=== PATIENT | female | born 1955 | race Caucasian/White ===

== ENCOUNTER → 2016-05-26 | Outpatient (CLI) | payer OTHER ==
[~2016-05-26] MED LIST: ASACOL400 MG OR; CLIMARA 0.00.0375 MG; CLIMARA 0.00.0375 MG TRANSDERM; CYCLOBENZAPRINE5 MG PO; FISH OIL 1,0001 EAC5 PO; FISH OIL 1,001000 M2 PO; FISHOIL OR; HYDROCODON-ACE1 EAC7 PO; LIPITOR10 MG PO; MOBIC15 MG PO; OXYCODONE HCL 55 MG PO; PARAFON FORTE500 M2 PO; RA GLUCOSAMINE PO; SULFASALAZINE500 M4 OR; SYNTHROID100 MCG OR; THERA-M CAPLET1 EACH OR; UNICOMPLEX M TA1 TA1 PO
== END ==
LOC: RAD 11:25
DX: Z12.31 Encounter for screening mammogram for malignant neoplasm of breast (principal)

== ENCOUNTER → 2016-10-17 | Outpatient (CLI) | payer OTHER | LOC: LABMALL 11:38 | DX: I10 Essential (primary) hypertension (principal); R74.8 Abnormal levels of other serum enzymes ==

== ENCOUNTER → 2017-04-26 | Outpatient (CLI) | payer OTHER ==
--- NOTE | ~2017-04-26 | 2DMMODE ---
[facility] [employer] [place] [address] 2 D/M-MODE ECHOCARDIOGRAM Name: TAWNY MILIAN Room #: REG [facility]#: [id number] Admission: 04/26/17 Attend Phys: Delroy Iverson MD Discharge: Date of : 59 Date of Service: 04/26/17 0941 Report #: [id number] THIS REPORT FOR: //name// APPROVED REPORT Study performed: 04/26/2017 08:54:05 EXAM: Comprehensive 2D, Doppler, and color-flow Echocardiogram Patient Location: Out-Patient Status: routine BSA: 1.74 HR: 63 bpm Rhythm: NSR Other Information Study Quality: Good Indications Chest Pain Family history CAD. 2D Dimensions RVDd: 32.05 mm LVEF(%): 68.43 (>50%) IVSd: 9.83 (7-11mm) LVOT Diam: 20.73 (18-24mm) LVDd: 42.01 mm PWd: 9.44 (7-11mm) Ascending Ao: 33.10 (22-36mm) LVDs: 26.09 (25-40mm) Aortic Root: 32.17 mm Price's LVEF: 68.43 % Volumes Left Atrial Volume (Systole) Single Plane 4CH: 37.29 mL Single Plane 2CH: 44.90 mL LA ESV Index: 25.00 mL/m2 Aortic Valve AoV Peak Julian.: 1.29 m/s AO Peak Gr.: 6.68 mmHg LVOT Max P.89 mmHg LVOT Max V: 0.99 m/s BRIANNA Vmax: 2.57 cm2 Mitral Valve E/A Ratio: 0.8 [facility] [employer]: [place] [address] [place] [address] 2 D/M-MODE ECHOCARDIOGRAM Name: RUDDY MILIANN Room #: [facility]#: [id number] Admission: 04/26/17 Attend Phys: Delroy Iverson MD Discharge: Date of : 59 Date of Service: 04/26/17 0941 Report #: [id number] MV Decel. Time: 286.66 ms MV E Max Julian.: 0.69 m/s MV A Julian.: 0.87 m/s MV PHT: 83.13 ms IVRT: 83.04 ms Pulmonary Valve PV Peak Julian.: 0.83 m/s PV Peak Gr.: 2.73 mmHg Pulmonary Vein P Vein S: 0.58 m/s P Vein A: 0.26 m/s P Vein D: 0.39 m/s P Vein A Dur.: 129.2 msec P Vein S/D Ratio: 1.49 Tricuspid Valve TR Peak Julian.: 2.22 m/s RAP Estimate: 5.00 mmHg TR Peak Gr.: 19.64 mmHg PA Pressure: 25.00 mmHg Left Ventricle The left ventricle is normal size. There is normal LV segmental wall motion. There is normal left ventricular wall thickness. Left ventricular systolic function is normal. LVEF is 60-65%. Mild diastolic dysfunction is present (impaired relaxation pattern). Right Ventricle The right ventricle is normal size. The right ventricular systolic function is normal. Atria The left atrium size is normal. The right atrium size is normal. Aortic Valve The aortic valve is normal in structure. No aortic regurgitation is present. There is no aortic valvular stenosis. Mitral Valve The mitral valve is normal in structure. Trace to mild mitral regurgitation. Tricuspid Valve The tricuspid valve is normal in structure. Trace to mild tricuspid regurgitation. Estimated PAP is 25mmHg. [facility] [address] [place] [address] 2 D/M-MODE ECHOCARDIOGRAM Name: TAWNY MILIAN Room #: REG [facility]#: [id number] Admission: 04/26/17 Attend Phys: Delroy Iverson MD Discharge: Date of : 59 Date of Service: 04/26/17 0941 Report #: [id number] Pulmonic Valve The pulmonary valve is normal in structure. Trace to mild pulmonic regurgitation. Great Vessels The aortic root is normal in size. The ascending aorta is normal in size. IVC is normal in size and collapses >50% with inspiration. Pericardium There is no pericardial effusion. <Conclusion> The left ventricle is normal size. Left ventricular systolic function is normal. Mild diastolic dysfunction is present (impaired relaxation pattern). The right ventricle is normal size. The left atrium size is normal. The aortic valve is normal in structure. Trace to mild mitral regurgitation. <ELECTRONICALLY SIGNED> By: Delroy Iverson MD 04/26/17940 0 0 Delroy Iverson MD /INF
== END ==
LOC: NUC 07:54
DX: I50.30 Unspecified diastolic (congestive) heart failure (principal); I65.23 Occlusion and stenosis of bilateral carotid arteries; R09.89 Other specified symptoms and signs involving the circulatory and respiratory systems

== ENCOUNTER → 2017-05-25 | Outpatient (CLI) | payer OTHER | LOC: RAD 11:17 | DX: Z12.31 Encounter for screening mammogram for malignant neoplasm of breast (principal) ==

== ENCOUNTER → 2017-10-26 | Outpatient (CLI) | payer OTHER | LOC: RAD 10:29 | DX: M43.12 Spondylolisthesis, cervical region (principal); M54.12 Radiculopathy, cervical region; M48.02 Spinal stenosis, cervical region ==

== ENCOUNTER → 2017-11-01 | Outpatient (CLI) | payer OTHER | LOC: MRI 07:04 | DX: M46.92 Unspecified inflammatory spondylopathy, cervical region (principal); M43.22 Fusion of spine, cervical region; M48.02 Spinal stenosis, cervical region; R20.0 Anesthesia of skin ==

== ENCOUNTER → 2018-05-29 | Outpatient (CLI) | payer OTHER | LOC: RAD 08:02 | DX: Z12.31 Encounter for screening mammogram for malignant neoplasm of breast (principal) ==

== ENCOUNTER → 2018-06-04 | Outpatient (CLI) | payer OTHER | LOC: ULTRA 10:06 | DX: R92.2 Inconclusive mammogram (principal) ==

== ENCOUNTER → 2019-06-12 | Outpatient (CLI) | payer OTHER ==
[~2019-06-12] MED LIST changes: +ALEVE220 M1 PO; +BENEFIBER1 EAC1 PO; +CRESTOR10 MG PO; +METAMUCIL1 EAC1 PO; -SULFASALAZINE500 M4 OR; +SULFASALAZINE500 M4 PO; +SYNTHROID100 MC1 PO; -SYNTHROID100 MCG OR; +ZYRTEC10 M5 PO
== END ==
LOC: MRI 07:27
DX: S83.281A Other tear of lateral meniscus, current injury, right knee, initial encounter (principal); M71.21 Synovial cyst of popliteal space [Baker], right knee; X58.XXXA Exposure to other specified factors, initial encounter; Y93.89 Activity, other specified; Y92.89 Other specified places as the place of occurrence of the external cause; Y99.8 Other external cause status

== ENCOUNTER → 2019-06-13 | Outpatient (CLI) | payer OTHER | LOC: RAD 09:27 | DX: Z12.31 Encounter for screening mammogram for malignant neoplasm of breast (principal) ==

== ENCOUNTER 2019-06-20 05:54 | Day surgery (SDC) | payer OTHER ==
[~2019-06-20] VITALS: Ht 157.5 cm; Wt 77.1 kg
[2019-06-20 07:27] VITALS: BP 126/69
--- NOTE | 2019-06-23 18:07 | PATH ---
[facility] [place] [address] PATHOLOGY RPT PROCEDURE Name: CARLI MANRIQUE Room #: [facility] M.R.#: [id number] Admission: 06/20/19 Date of : 59 Discharge: 06/20/19 Report #: [id number] Path Case #: [id number] LCA Accession Number: [id number] . 01 Material submitted: . foot - WART LEFT FOOT. Modifiers: left . 01 Clinical history: . Multiple warts left foot . 02 Diagnosis: Skin, wart left foot, excision: - Superficial fragments of a verruca vulgaris. - No definite malignancy within the superficial sample. (IUV:david; 06/23/2019) QMS 06/23/2019 1257 Local . 02 Comment: Please note sample may not be entirely artist representative. Correlate clinically and follow-up as indicated. (IUV:david; 06/23/2019) . 02 Electronically signed: . Raisa Payton MD, Pathologist NPI- [id number] . 01 Gross description: . The specimen is received in formalin, labeled "Carli Manrique wart left foot" and consists of a verrucoid pink-mcneill skin shave measuring 1.4 x 1.3 x 0.3 cm. It is inked, serially sectioned, and entirely submitted in A1. (SDY; 06/20/2019) SYU/SYU 06/20/2019 1630 Local . 02 Pathologist provided ICD-10: B07.8 . 02 CPT . 843158 Specimen Comment: A courtesy copy of this report has been sent to [phone] Specimen Comment: [phone] Specimen Comment: Report sent to and Performed at: [address] [id number] MD Rodrick Early MD Phone: [phone] Performed at: [address] [address] PATHOLOGY RPT PROCEDURE Name: RUDDY MANRIQUEN Room #: [facility] M.R.#: [id number] Admission: 06/20/19 Date of : 59 Discharge: 06/20/19 Report #: [id number] Path Case #: [id number] [address] [place], [place] [id number] MD Raisa Payton MD Phone: [phone]
--- NOTE | 2019-07-03 08:58 | H ---
[facility] [place] [place] [address] HISTORY AND PHYSICAL Name: TAWNY MILIAN Room #: DEP [facility] M.Lloyd.#: [id number] Admission: 06/20/19 Attend Phys: ELVIS Peterson Discharge: 06/20/19 Date of : 59 Report #: [id number] THIS REPORT FOR: //name// CC: Agnieszka Rivas DATE OF SURGERY: 06/20/2019 INTRODUCTION: The patient is a 64-year-old female who is presenting to outpatient surgery at [facility] for removal of painful warts on the left foot. The patient has a fairly large area of wart development on the left first metatarsophalangeal joint plantarly and several other warts scattered across her foot that are symptomatic and in need of removal. Because of the large size and distribution, it was felt that performance of these procedures under IV sedation would offer most comfortable and best outcome. The patient has elected to proceed with this procedure. PAST MEDICAL HISTORY: The patient has history of arthritis, hypercholesterolemia, hypothyroidism. ALLERGIES: The patient has sensitivity TO PENICILLIN AND TRAMADOL. MEDICATIONS: The patient currently taking glucosamine, fish oil, alprazolam, acetaminophen, rosuvastatin, naproxen, cetirizine and levothyroxine. Denies other medicines at this time. PAST SURGICAL HISTORY: Includes bunionectomy, knee surgery, rotator cuff repair, shoulder surgery, skin cancer, VIRY and BSO. She has also had a right second toe correction. She denies complications of surgery and anesthesia. SOCIAL HISTORY: The patient is employed, has supportive home life. Denies usage of alcohol, tobacco or illicit drugs. PHYSICAL EXAMINATION: PEDAL: Dorsalis pedis, posterior tibial pulses are graded at 2/4. Capillary refill time is within normal limits. NEUROLOGICAL: The patient is grossly intact to all sensory stimulus including sharp, dull, proprioceptive and vibratory sensations. She has full ankle, subtalar, midtarsal joint ranges of motion without pain or crepitus. There is no orthopedic abnormalities detected. DERMATOLOGIC: Reveals a large 1.5 cm hyperkeratotic lesion on the plantar medial first MPJ, which upon debridement demonstrates classic features consistent with plantar verruca. This lesion is sensitive to palpation and is seemingly associated with several lesions all coalesced, i.e., mosaic wart. There are similar lesions noted on the remaining parts of her foot including a 1.7 cm lesion on the third toe and a smaller 0.4 cm lesion on the hallux. There [address] [address] HISTORY AND PHYSICAL Name: TAWNY MILIAN Room #: DEP [facility].#: [id number] Admission: 06/20/19 Attend Phys: ELVIS Peterson Discharge: 06/20/19 Date of : 59 Report #: [id number] is no other pathology noted. IMPRESSION: Verruca plantaris, multiple mosaic left foot. PLAN: The patient's condition has been reviewed with her and treatment alternatives were discussed. Because these lesions are symptomatic and she has noted some progression in their distribution, she has elected to have them removed. I have discussed the procedure to be performed, which include excision of warts with curettage. The patient understands the nature of the procedure, aftercare demands that will be placed upon her including a period of limited standing and walking, elevation of her foot and use of a postoperative shoe for 2-4 weeks. She will also be responsible for dressing changes. She had no questions regarding these issues. We discussed potential risks and complications, which include but not limited to pain, swelling, bleeding, numbness, infection, delayed healing, undercorrection, overcorrection, anesthesia complications, painful scar formation, recurrent warts, delays in healing, tourniquet complications, etc. After discussing these issues, the patient has no questions and is interested in proceeding with the surgery as discussed. <ELECTRONICALLY SIGNED> By: Farhat Rivas DPM 07/03/19 0858 1205 1220 Farhat Rivas DPM /daphne
--- NOTE | 2019-07-03 08:59 | O ---
[facility] [place] [address] OPERATIVE REPORT Name: TAWNY MILIAN Room #: DEP [facility] Mel.#: [id number] Admission: 06/20/19 Attend Phys: ELVIS Peterson Discharge: 06/20/19 Date of : 59 Report #: [id number] THIS REPORT FOR: cc: Agnieszka Dawson DNP, Mary E. DNP Dorris,Farhat Mallory DPM ~ CC: Agnieszka Rivas DATE OF SERVICE: 06/20/2019 PREOPERATIVE DIAGNOSIS: Multiple plantar warts, left foot. POSTOPERATIVE DIAGNOSIS: Multiple plantar warts, left foot. PROCEDURE: Excision of multiple plantar warts, left foot. ANESTHESIA: IV sedation, local anesthetic. DESCRIPTION OF PROCEDURE: The patient was brought to the operating room and placed on the operating table in supine position. IV sedation was began without complications and 7 mL of 0.5% Marcaine plain were injected sublesionaly at multiple sites on the left foot to obtain local anesthesia. Additional 2 mL of a 1:1 mix of 1% lidocaine with epinephrine and 0.5% Marcaine plain was injected sublesional in the left foot in a much smaller amount to obtain some hemostasis at these sites. The foot was prepped and draped in the usual sterile fashion. Attention was then directed to the left plantar foot where full inspection of the foot revealed 5 individual lesions consistent with verruca plantaris, the largest of which is on the plantar medial aspect of the left first metatarsophalangeal joint. Each of these lesions including 2 on the hallux and 2 on the left fourth toe were circumscribed with 15 blade. Dermal curette was used to carefully strip these lesions from the dermis. Tissue margins were curetted and inspected for additional pathology. The largest lesion was sent to pathology for micro exam. No additional pathology was noted at the time of treatment of these lesions. After complete saucerization of these wounds, they were then treated with 30-second application of 89% phenol and then irrigated with sterile saline, dressed sterilely with Silvadene, 4 x 4 gauze, Carlos, and Baldemar bandage. The patient was alert and reactive in the operating room and subsequently transferred to postanesthesia recovery room where vital signs were monitored by recovery room staff. There were no complications with the procedure. Estimated blood loss was minimal. Specimens were sent to pathology. The patient was visited in postanesthesia recovery room, was given full verbal [address] [address] OPERATIVE REPORT Name: TAWNY MILIAN Room #: DEP [facility] Clari#: [id number] Admission: 06/20/19 Attend Phys: ELVIS Peterson Discharge: 06/20/19 Date of : 59 Report #: [id number] and written home care instructions with specific instructions to contact me if she has any problems or questions prior to first post-procedural visit in approximately 2 weeks. <ELECTRONICALLY SIGNED> By: Farhat iRvas DPM 07/03/19 0859 0917 0933 Farhat Rivas, RUFINA /daphne
== END 2019-06-20 09:30 | disposition home or self-care (01) ==
LOC: OR 05:54 → TBA 05:55 → OR 09:30
DX: B07.0 Plantar wart (principal); E78.5 Hyperlipidemia, unspecified; M19.90 Unspecified osteoarthritis, unspecified site; E03.9 Hypothyroidism, unspecified; G47.30 Sleep apnea, unspecified; Z85.828 Personal history of other malignant neoplasm of skin; Z98.890 Other specified postprocedural states; Z79.899 Other long term (current) drug therapy; Z88.0 Allergy status to penicillin; Z88.6 Allergy status to analgesic agent
CPT/HCPCS: 50010; 50101; 50386; 57091; 62110; 62850; 70005

== ENCOUNTER 2019-06-24 05:51 | Day surgery (SDC) | payer OTHER ==
[~2019-06-24] VITALS: Ht 157.5 cm; Wt 77.1 kg
--- NOTE | ~2019-06-24 | O ---
[facility] [place] [place] [address] OPERATIVE REPORT Name: TAWNY MILIAN Room #: 150-2 [facility] M.R.#: [id number] Admission: 06/24/19 Attend Phys: Burke Rhodes MD Discharge: Date of : 59 Report #: [id number] THIS REPORT FOR: cc: Agnieszka Dawson DNP, Mary E. DNP Abraham, Scott M. MD ~ CC: Agnieszka Rhodes DATE OF SERVICE: 06/24/2019 PREOPERATIVE DIAGNOSES: 1. Right knee lateral meniscus tear. 2. Chondral defect, medial femoral condyle, right knee. POSTOPERATIVE DIAGNOSES: 1. Inner margin fraying, lateral meniscus, right knee. 2. Full-thickness chondral defect posterior medial femoral condyle. 3. 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 PROCEDURE: 1. Right knee arthroscopy with partial lateral meniscectomy. 2. Chondroplasty, medial femoral condyle. SURGEON: Burke Rhodes MD. CEMENT STORAGE WORKER: Sienna Ca PA-C. ANESTHESIA: LMA. COMPLICATIONS: None. SPECIMENS: None. TOURNIQUET TIME: 15 minutes. CONDITION UPON LEAVING THE OPERATING ROOM: Stable. INDICATIONS FOR PROCEDURE: The patient is a 64-year-old female, who has had medial-sided right knee pain and mechanical symptoms. She had an MRI scan showing her to have an intact medial meniscus, but she did have a full-thickness chondral defect with an unstable flap of her medial femoral condyle. She is also noted to have a tearing of the lateral meniscus. After discussion with her, she elected for right knee arthroscopy with partial meniscectomy and debridement as needed. [address] [address] OPERATIVE REPORT Name: TAWNY MILIAN Room #: 150-2 [facility] M.Lloyd.#: [id number] Admission: 06/24/19 Attend Phys: Burke Rhodes MD Discharge: Date of : 59 Report #: [id number] DESCRIPTION OF PROCEDURE: Risks, benefits, alternatives, and complications were discussed in detail with the patient including, but not limited to risk of anesthesia, risk of damage to nerves, arteries, blood vessels, risk for infection, bleeding, risk for continued knee pain, need for reoperation. Informed consent was obtained from the patient. Right knee was appropriately marked in the preoperative holding area. IV Ancef was given for preoperative antibiotics. She was brought to the operating room and placed in supine position on operating room table. LMA anesthesia was induced without complications. Tourniquet was placed on the right thigh. Right lower extremity was prepped and draped in normal sterile fashion. Timeout was performed properly identifying the patient and procedure as well as the instrumentation and all in the operating room were in agreement. Right lower extremity was exsanguinated, tourniquet was inflated. Tourniquet time was 15 minutes. Standard anterolateral portal was established with 11 blade through the skin. Arthroscope was introduced into the patellofemoral compartment, diagnostic arthroscopy was undertaken. Patellofemoral compartment was visualized and found to be without pathology. Medial gutter was visualized and found to be without pathology. Medial compartment was visualized and medial portal was established under arthroscopic visualization. Probe was introduced into the medial compartment and there was noted to be an intact medial meniscus. The knee was flexed and there was noted to be a full-thickness chondral flap of the posterior medial femoral condyle. This was unstable to probing and chondroplasty of this area was performed with the oscillating shaver. Notch was visualized and found to have an intact anterior cruciate ligament. Lateral compartment was visualized and found to have inner margin fraying of the lateral meniscus as well as grade 4 chondromalacia of the tibial plateau as well as the femoral condyle. Partial lateral meniscectomy was performed with the oscillating shaver. After this, all fluid was allowed to drain from the knee. Knee was injected with 10 mL of 0.5% Marcaine. Incision was closed with 3-0 nylon. Soft dressing of Adaptic, 4 x 4, Webril, Baldemar wrap were applied. The patient tolerated this procedure well and went to recovery room under care of anesthesia postoperatively. By: 0834 [id number] Burke Rhodes MD /daphne
[2019-06-24 07:19] VITALS: BP 122/62
[2019-06-24] MEDS ORDERED: NORCO 5-325 TA1 EAC1 PO (08:18)
[2019-06-24 08:36] VITALS: BP 122/62
[2019-06-24] MEDS ORDERED: ZOFRAN ODT4 MG DISSOLVE (10:08)
== END 2019-06-24 09:45 | disposition home or self-care (01) ==
LOC: OR 05:51 → TBA 05:52 → OR 06:40
DX: S83.281A Other tear of lateral meniscus, current injury, right knee, initial encounter (principal); M94.261 Chondromalacia, right knee; M94.8X6 Other specified disorders of cartilage, lower leg; E78.5 Hyperlipidemia, unspecified; G47.30 Sleep apnea, unspecified; Z98.890 Other specified postprocedural states; E03.9 Hypothyroidism, unspecified; Z90.710 Acquired absence of both cervix and uterus; Z88.0 Allergy status to penicillin; Z88.8 Allergy status to other drugs, medicaments and biological substances; Z79.899 Other long term (current) drug therapy; X58.XXXA Exposure to other specified factors, initial encounter; Y93.89 Activity, other specified; Y92.89 Other specified places as the place of occurrence of the external cause; Y99.8 Other external cause status
CPT/HCPCS: 50010; 50101; 50405; 51038; 54170; 56526; 57103; 57180; 62110; 62900; 70005

== ENCOUNTER → 2019-10-14 | Outpatient (CLI) | payer OTHER ==
[~2019-10-14] MED LIST changes: +NORCO 5-325 TA1 EAC1 PO; +ZOFRAN ODT4 MG DISSOLVE
[2019-10-14 09:34] LABS: ABSOLUTE NEUTROPHILS 1.7 thou/uL (1.4-8.2); BASOPHILS 1.1 % (0.0-2.0); EOSINOPHILS 1.8 % (0.0-3.0); HEMATOCRIT 42.3 % (37.0-47.0); HEMOGLOBIN 14.2 gm/dL (12.0-15.0); LYMPHOCYTES 40.6 % (24.0-44.0); MCH 30.7 pg (26.0-34.0); MCHC 33.6 g/dL (28.0-37.0); MCV 91.4 fL (80.0-100.0); MONOCYTES 9.1 % (1.0-8.0); PLATELET COUNT 269 thou/uL (150-400); POLYS 47.4 % (36.0-66.0); RBC 4.63 mil/uL (4.20-5.00); WBC 3.6 thou/uL (4.0-11.0)
[2019-10-14 09:53] LABS: ALBUMIN 3.9 g/dL (3.4-5.0); ANION GAP 6 mmol/L (7-16); BUN 13 mg/dL (7-18); CALCIUM 8.8 mg/dL (8.5-10.1); CHLORIDE 99 mmol/L (98-107); CHOLESTEROL 155 mg/dL (<200); CO2 30 mmol/L (21-32); CREATININE 0.8 mg/dL (0.6-1.0); GLUCOSE 96 mg/dL (74-106); HDL CHOLESTEROL 71 mg/dL (>40); LDL CHOLESTEROL 75 mg/dL (<100); MAGNESIUM 2.1 mg/dL (1.8-2.4); POTASSIUM 4.4 mmol/L (3.5-5.1); SGOT 31 U/L (15-37); SGPT 39 U/L (30-65); SODIUM 135 mmol/L (136-145); TC:HDL 2.2 Ratio (Not establshd); TOTAL BILIRUBIN 0.5 mg/dL (0.2-1.0); TRIGLYCERIDE 46 mg/dL (<150); VLDL 9 mg/dL (<40)
== END ==
LOC: LABMALL 08:36
PROVIDERS: ATTEND Nurse Practitioner
DX: E78.2 Mixed hyperlipidemia (principal); M79.609 Pain in unspecified limb; R74.8 Abnormal levels of other serum enzymes

== ENCOUNTER → 2019-11-26 | Outpatient (CLI) | payer OTHER ==
[~2019-11-26] MED LIST changes: +ALLERCLEAR10 MG PO; +MIRALAX17 G1 PO
== END ==
LOC: LAB 07:52
PROVIDERS: ATTEND Nurse Practitioner
DX: Z20.828 Contact with and (suspected) exposure to other viral communicable diseases (principal); J02.9 Acute pharyngitis, unspecified

== ENCOUNTER → 2019-12-11 | Outpatient (CLI) | payer OTHER | LOC: LAB 11:20 | PROVIDERS: ATTEND Student in an Organized Health Care Education/Training Program | DX: Z01.812 Encounter for preprocedural laboratory examination (principal); Z20.828 Contact with and (suspected) exposure to other viral communicable diseases ==

== ENCOUNTER → 2019-12-15 | Outpatient (CLI) | payer OTHER ==
[~2019-12-15] VITALS: Ht 157.5 cm; Wt 74.8 kg
== END | disposition home or self-care (01) ==
LOC: GI 06:40
PROVIDERS: ATTEND Internal Medicine Gastroenterology
DX: Z12.11 Encounter for screening for malignant neoplasm of colon (principal); K64.4 Residual hemorrhoidal skin tags; K63.89 Other specified diseases of intestine; E03.9 Hypothyroidism, unspecified; Z80.0 Family history of malignant neoplasm of digestive organs; Z79.899 Other long term (current) drug therapy; Z98.890 Other specified postprocedural states; Z88.5 Allergy status to narcotic agent; Z88.1 Allergy status to other antibiotic agents; Z88.8 Allergy status to other drugs, medicaments and biological substances
CPT/HCPCS: 62110; 62900

== ENCOUNTER → 2020-05-19 | Outpatient (CLI) | payer OTHER | LOC: LAB 14:27 | PROVIDERS: ATTEND Nurse Practitioner | DX: Z20.822 Contact with and (suspected) exposure to COVID-19 (principal) ==

== ENCOUNTER → 2020-05-20 | Outpatient (CLI) | payer OTHER | LOC: ULTRA 08:58 | PROVIDERS: ATTEND Nurse Practitioner | DX: E04.2 Nontoxic multinodular goiter (principal); R09.89 Other specified symptoms and signs involving the circulatory and respiratory systems ==

== ENCOUNTER → 2020-06-23 | Outpatient (CLI) | payer OTHER | LOC: RAD 08:40 | PROVIDERS: ATTEND Nurse Practitioner | DX: Z12.31 Encounter for screening mammogram for malignant neoplasm of breast (principal) ==

== ENCOUNTER → 2020-10-15 | Outpatient (CLI) | payer OTHER ==
[2020-10-15 10:08] LABS: ABSOLUTE NEUTROPHILS 1.7 thou/uL (1.4-8.2); BASOPHILS 1.5 % (0.0-2.0); EOSINOPHILS 1.1 % (0.0-3.0); HEMOGLOBIN 13.9 gm/dL (12.0-15.0); LYMPHOCYTES 38.4 % (24.0-44.0); MCHC 33.8 g/dL (28.0-37.0); MCV 91.8 fL (80.0-100.0); MONOCYTES 8.1 % (1.0-8.0); PLATELET COUNT 260 thou/uL (150-400); POLYS 50.9 % (36.0-66.0); RBC 4.47 mil/uL (4.20-5.00); RDW 13.8 % (10.5-14.5); WBC 3.3 thou/uL (4.0-11.0)
[2020-10-15 10:30] LABS: ALBUMIN 3.9 g/dL (3.4-5.0); ANION GAP 8 mmol/L (7-16); BUN 18 mg/dL (7-18); CALCIUM 8.7 mg/dL (8.5-10.1); CHLORIDE 102 mmol/L (98-107); CHOLESTEROL 149 mg/dL (<200); CO2 28 mmol/L (21-32); CREATININE 0.7 mg/dL (0.6-1.0); GLUCOSE 94 mg/dL (74-106); HDL CHOLESTEROL 78 mg/dL (>40); LDL CHOLESTEROL 64 mg/dL (<100); POTASSIUM 4.2 mmol/L (3.5-5.1); SGOT 33 U/L (15-37); SGPT 48 U/L (30-65); SODIUM 138 mmol/L (136-145); TC:HDL 1.9 Ratio (Not establshd); TOTAL BILIRUBIN 0.5 mg/dL (0.2-1.0); TOTAL PROTEIN 7.6 g/dL (6.4-8.2); TRIGLYCERIDE 35 mg/dL (<150); VLDL 7 mg/dL (<40)
== END ==
LOC: LAB 09:27
PROVIDERS: ATTEND Nurse Practitioner
DX: I10 Essential (primary) hypertension (principal); E78.2 Mixed hyperlipidemia; E03.8 Other specified hypothyroidism

== ENCOUNTER → 2021-02-15 | Outpatient (CLI) | payer OTHER | LOC: SJCVCIMAG 08:04 | PROVIDERS: ATTEND Internal Medicine Cardiovascular Disease | DX: R06.00 Dyspnea, unspecified (principal); E78.00 Pure hypercholesterolemia, unspecified; I10 Essential (primary) hypertension; I25.10 Atherosclerotic heart disease of native coronary artery without angina pectoris; Z88.5 Allergy status to narcotic agent; Z88.0 Allergy status to penicillin; Z88.8 Allergy status to other drugs, medicaments and biological substances; Z79.899 Other long term (current) drug therapy; Z72.89 Other problems related to lifestyle ==

== ENCOUNTER → 2021-02-23 | Outpatient (CLI) | payer OTHER | LOC: ULTRA 09:24 | PROVIDERS: ATTEND Otolaryngology | DX: E04.2 Nontoxic multinodular goiter (principal) ==

== ENCOUNTER → 2021-04-07 | Outpatient (CLI) | payer OTHER | LOC: RAD 08:31 | PROVIDERS: ATTEND Nurse Practitioner | DX: M77.32 Calcaneal spur, left foot (principal) ==

== ENCOUNTER → 2021-05-12 | Outpatient (CLI) | payer OTHER | LOC: SJCVCIMAG 09:07 | PROVIDERS: ATTEND Internal Medicine Cardiovascular Disease | DX: R00.0 Tachycardia, unspecified (principal); I10 Essential (primary) hypertension; E78.5 Hyperlipidemia, unspecified; R53.83 Other fatigue; R06.00 Dyspnea, unspecified; Z79.899 Other long term (current) drug therapy ==

== ENCOUNTER → 2021-06-27 | Outpatient (CLI) | payer OTHER | LOC: BC 11:36 | PROVIDERS: ATTEND Nurse Practitioner | DX: Z12.31 Encounter for screening mammogram for malignant neoplasm of breast (principal); N64.59 Other signs and symptoms in breast ==